=== PATIENT | female | born 1965 | race Caucasian/White ===

== ENCOUNTER 2021-04-23 18:31 | Emergency (ER) | payer OTHER ==
[~2021-04-23] VITALS: Ht 170.2 cm; Wt 67.0 kg
[~2021-04-23 18:31] MED LIST: MOBIC7.5 MG PO; NORCO 5-325 TA1 EACH PO; PERCOCET 10-321 EACH PO; PERCOCET 5-3251 EACH PO
--- OUTSIDE RECORDS SUMMARY | 2021-04-23 18:38 | XMS ---
PreManage Notification: FRANCISCO MCCANN Security Pipelayer Events No recent Security Events currently on file CRITERIA MET - Group Notification CARE PROVIDERS There are no care providers on record at this time. Elio has no Care Guidelines for this patient. [place] VISIT COUNT (12 MO.) 1 ALLYSON Arizmendi TOTAL 1 NOTE: Visits indicate total known visits. ED/UCC VISIT TRACKING (12 MO.) 04/23/2021 18:32 ALLYSON [facility] TYPE: Emergency COMPLAINT: - DEHYDRATION, WEAKNESS INPATIENT VISIT TRACKING (12 MO.) No inpatient visits to display in this time frame [email or web address]
[2021-04-23] MEDS ORDERED: ZOFRAN4 MG PO (22:45)
== END 2021-04-23 23:12 | disposition home or self-care (01) ==
LOC: ED 18:31
DX: K29.00 Acute gastritis without bleeding (principal); Z87.891 Personal history of nicotine dependence
CPT/HCPCS: 80053; 81001; 83690; 83735; 85025; 96374; 99284-25; A9270; J2405; J7030; J7040